=== PATIENT | male | born 1995 | race Caucasian/White ===

== ENCOUNTER → 2016-09-19 | Outpatient (CLI) | payer MEDICAID ==
--- NOTE | 2016-09-19 18:51 | Diagnostic Imaging Report ---
INDICATION: Right fourth finger injury 3 views of the right fourth finger show a volar plate fracture of the base of the middle phalanx of fourth finger. This is minimally displaced. IMPRESSION: Volar plate corner fracture base of the middle phalanx of the right fourth finger. Dictated by: Dictated on workstation # [id number]
== END ==
LOC: RAD 18:08
PROVIDERS: ATTEND Nurse Practitioner Family
DX: S62.624A Displaced fracture of middle phalanx of right ring finger, initial encounter for closed fracture (principal); X58.XXXA Exposure to other specified factors, initial encounter; Y99.8 Other external cause status
CPT/HCPCS: 73140

== ENCOUNTER 2019-06-03 14:09 | Emergency (ER) | payer SELFPAY ==
[~2019-06-03] VITALS: Ht 193 cm; Wt 92.5 kg
[2019-06-03] MEDS ORDERED: ONDANSETRON 4 MG (ZOFRAN) ORAL DISSOLVE TAB PO STA (14:22)
--- NOTE | 2019-06-03 14:25 | ED General ---
General Stated Complaint: SUBSTANCE ABUSE Source of Information: Patient Exam Limitations: No Limitations History of Present Illness Date Seen by Provider: Jun 03, 2019 Time Seen by Provider: 14:20 Initial Comments Patient presents to the ER stating he just injected himself with Meth....... concerned that it was a dirty needle and may have had "WD-40 on it". States he just got out of correction in Feb 2019 where he spent 9 months (off Meth) and only recently started using again. states he is on probation and does not want to go back to correction. States he has anxiety, paranoia and trouble w sleep Denies SI or HI Allergies and Home Medications Allergies Coded Allergies: No Known Drug Allergies (Unverified , 06/03/19) Patient Home Medication List Home Medication List Reviewed: Yes Review of Systems Review of Systems Constitutional: see HPI; No malaise, No weakness Respiratory: No cough, No dyspnea on exertion Cardiovascular: No chest pain, No palpitations Gastrointestinal: No abdominal pain; loss of appetite, nausea; No vomiting Psychiatric/Neurological: See HPI, Anxiety Past Fswrveq-Uyimud-Ayapow Hx Past Med/Social Hx: Reviewed Nursing Past Med/Soc Hx Patient Social History Recreational Drug Use: Yes Physical Exam Vital Signs Vital Signs - First Documented 06/03/19 14:34 Temp 37.3 Pulse 107 Resp 22 B/P (MAP) 151/92 (111) Pulse Ox 98 O2 Delivery Room Air Capillary Refill : Height, Weight, BMI Height: '" Weight: lbs. oz. kg; BMI Method: General Appearance: No Apparent Distress, WD/WN, Anxious HEENT: Normal ENT Inspection Neck: Full Range of Motion, Normal Inspection, Non Tender, Supple Respiratory: Chest Non Tender, Lungs Clear, Normal Breath Sounds Cardiovascular: No Edema, No JVD, Normal Peripheral Pulses, Tachycardia (108) Gastrointestinal: Non Tender, Soft Back: No CVA Tenderness, No Vertebral Tenderness Extremity: Normal Capillary Refill, Normal Inspection Neurologic/Psychiatric: Alert, No Motor/Sensory Deficits Progress/Results/Core Measures Suspected Sepsis SIRS Temperature: Pulse: Respiratory Rate: Blood Pressure / Mean: Results/Orders Lab Results Laboratory Tests Test 06/03/19 14:22 Range/Units Urine Opiates Screen NEGATIVE NEGATIVE Urine Oxycodone Screen NEGATIVE NEGATIVE Urine Methadone Screen NEGATIVE NEGATIVE Urine Propoxyphene Screen NEGATIVE NEGATIVE Urine Barbiturates Screen NEGATIVE NEGATIVE Ur Tricyclic Antidepressants Screen NEGATIVE NEGATIVE Urine Phencyclidine Screen NEGATIVE NEGATIVE Urine Amphetamines Screen POSITIVE H NEGATIVE Urine Methamphetamines Screen POSITIVE H NEGATIVE Urine Benzodiazepines Screen NEGATIVE NEGATIVE Urine Cocaine Screen NEGATIVE NEGATIVE Urine Cannabinoids Screen POSITIVE H NEGATIVE My Orders Orders - JIN ADAME DO Ondansetron Oral Dissolve Tab (Zofran (06/03/19 14:22) Drug Screen Stat (Urine) (06/03/19 14:22) Vital Signs/I&O 06/03/19 06/03/19 14:34 15:15 Temp 37.3 36.8 Pulse 107 128 Resp 22 16 B/P (MAP) 151/92 (111) 148/73 Pulse Ox 98 98 O2 Delivery Room Air Room Air Capillary Refill : Progress Note : Progress Note Uneventful ER stay. Patient presented similarly out of guilt for using with no obvious or perceived threat to himself or others. Denies suicidal or homicidal ideation. Patient was given information and attempt to make an appointment (per nursing) for follow-up drug rehabilitation were discussed and information given to patient at discharge. Departure Impression Primary Impression: Methamphetamine abuse, episodic Disposition: 01 HOME, SELF-CARE Condition: Stable Departure-Patient Inst. Referrals: NO,LOCAL PHYSICIAN (PCP/Family) Primary Care Physician Patient Instructions: Drug Abuse and Drug Addiction (DC), Drug Abuse Treatment JIN ADAEM DO Jun 03, 2019 14:25 POS
[2019-06-03 14:40] LABS: AMPHETAMINE SCREEN, URINE POSITIVE (NEGATIVE); BARBITURATE SCREEN URINE NEGATIVE (NEGATIVE); BENZODIAZEPINES SCREEN URINE NEGATIVE (NEGATIVE); CANNABINOID SCREEN, URINE POSITIVE (NEGATIVE); COCAINE SCREEN URINE NEGATIVE (NEGATIVE); METHADONE STAT NEGATIVE (NEGATIVE); METHAMPHETAMINE SCREEN URINE S POSITIVE (NEGATIVE); OPIATE SCREEN URINE NEGATIVE (NEGATIVE); OXYCODONE STAT NEGATIVE (NEGATIVE); PROPOXYPHENE STAT NEGATIVE (NEGATIVE); TRICYCLIC ANTIDEPRESSANTS SCRE NEGATIVE (NEGATIVE)
[2019-06-03 15:15] VITALS: BP 148/73
== END 2019-06-03 15:15 | disposition home or self-care (01) ==
LOC: EDUNIT# 14:09 → ER FS 14:11
DX: F15.10 Other stimulant abuse, uncomplicated (principal)
CPT/HCPCS: 80306; 99283

== ENCOUNTER 2021-04-18 19:49 | Emergency (ER) | payer OTHER ==
[~2021-04-18] VITALS: Ht 193 cm; Wt 79.0 kg
--- NOTE | 2021-04-18 20:05 | ED Psychosocial ---
General Chief Complaint: Psych/Social Disorder Stated Complaint: CHEMICALS IN MOUTH Source: patient, police Exam Limitations: no limitations History of Present Illness Date Seen by Provider: Apr 18, 2021 Time Seen by Provider: 19:53 Initial Comments 25-year-old male with past medical history of meth amphetamine use disorder coming in with the police after the patient was at his mother's house swishing bleach in his mouth, covering his skin and Sevin Dust (insect killer) and potentially spraying wasp killer on his skin. He used meth just over a day ago and he is concerned that he was around somebody that had Covid so was doing all of this to potentially "kill the COVID". He denies any pain anywhere, shortness of breath, cough, difficulty swallowing, chest pain, abdominal pain, nausea, vomiting, diarrhea, fever, chills, weakness, numbness, seizures, or any other concerns. This occurred over 2 hours ago now. He was decontaminated at the snf prior to coming to the emergency department. Allergies and Home Medications Allergies Coded Allergies: No Known Drug Allergies (Unverified , 06/03/19) Patient Home Medication List Home Medication List Reviewed: Yes Review of Systems Constitutional: No chills, No fever EENTM: No blurred vision, No mouth pain Respiratory: No cough, No short of breath Cardiovascular: No chest pain Gastrointestinal: No abdominal pain, No constipation, No diarrhea, No nausea, No vomiting Musculoskeletal: no symptoms reported Skin: no symptoms reported Psychiatric/Neurological: Anxiety All Other Systems Reviewed Negative Unless Noted: Yes Past Kxdequp-Pwsttc-Ixjzkj Hx Patient Social History Tobacco Use?: Yes Substance use?: Yes Substance type: Methamphetamine Seasonal Allergies Seasonal Allergies: No Past Medical History Surgeries: No Respiratory: No Cardiac: No Neurological: No Genitourinary: No Gastrointestinal: No Musculoskeletal: No Endocrine: No HEENT: No Cancer: No Psychosocial: No Integumentary: No Physical Exam Vital Signs - First Documented 04/18/21 19:50 Temp 36.4 Pulse 89 Resp 15 B/P (MAP) 149/92 (111) Pulse Ox 99 O2 Delivery Room Air Capillary Refill : Height, Weight, BMI Height: '" Weight: lbs. oz. kg; 24.00 BMI Method: General Appearance: WD/WN, no apparent distress HEENT: PERRL/EOMI, normal ENT inspection, TMs normal, pharynx normal Neck: non-tender, full range of motion, supple, normal inspection Respiratory: chest non-tender, lungs clear, normal breath sounds, no respiratory distress, no accessory muscle use Cardiovascular: regular rate, rhythm, no edema, no murmur Gastrointestinal: normal bowel sounds, non tender, soft; No distended, No guarding, No rebound Extremities: normal range of motion, non-tender, normal inspection, no pedal edema, no calf tenderness Neurologic/Psychiatric: no motor/sensory deficits, alert, normal mood/affect, oriented x 3 Appearance/Memory: disheveled Behavior/Eye Contact: increased rate of speech, compulsive Thoughts/Hallucinations: flight of ideas Skin: normal color, warm/dry Lymphatic: no adenopathy Progress/Results/Core Measures Results/Orders My Orders Orders - LAURA REYNOSO MD Chest 1 View Ap/Pa Only (04/18/21 20:01) Vital Signs/I&O 04/18/21 19:50 Temp 36.4 Pulse 89 Resp 15 B/P (MAP) 149/92 (111) Pulse Ox 99 O2 Delivery Room Air Progress Progress Note : Progress Note 25-year-old male with above history coming in with the police after pouring a few different chemicals on the skin as well as swishing and spitting out bleach. ABCs were intact and vitals were stable on presentation. This was confirmed possible bleach and he did not swallow any of it. He has been effectively decontaminated at this point. He is tolerating secretions and water in the emergency department. I contacted poison control and they have no further recommendations at this time, and only recommend decontamination. None of these things should cause serious harm and mostly may have some mild skin irritation. From their standpoint he does not need to be monitored in the emergency department and he is okay for discharge. I did get a chest x-ray for screening and there is no signs of pneumonitis or free air. I believe the patient is stable for discharge. He will be going to the snf with the police officers and will stay there until he is at least clinically sober. He was then discharged to them with strict return precautions and stable condition. Diagnostic Imaging Diagonstic Imaging: Xray Plain Films/CT/US/NM/MRI: chest Comments X-ray chest ordered and interpreted by me showing no obvious opacities, pneumothorax, pleural effusion, and no signs of pneumonitis. No free air under the diaphragm. [facility] [place], [place] NAME: EDELMIRA BRITTON [facility] REC#: [id number] PT STATUS: REG ER : 1995 PHYSICIAN: LAURA REYNOSO MD ADMIT DATE: 04/18/21/ER FS Draft Date of Exam:04/18/21 CHEST 1 VIEW AP/PA ONLY EXAMINATION: Chest 1 view HISTORY: Possible bleach ingestion COMPARISON: None available. FINDINGS: The lungs are clear without edema or pneumonia. No pleural effusion or pneumothorax. Heart size is normal. IMPRESSION: 1. Clear lungs. Dictated on workstation # [id number] Dict: 04/18/[id number] Trans: 04/18/212021 [facility] [id number] Interpreted by: LUCERO BUCHANAN MD Electronically signed by: Departure Impression Primary Impression: Methamphetamine use Additional Impressions: Ingestion of bleach Qualified Codes: T54.91XA - Toxic effect of unspecified corrosive substance, accidental (unintentional), initial encounter Skin irritation due to topical agent Disposition: HOME, SELF-CARE Condition: Stable Departure-Patient Inst. Decision time for Depature: 20:30 Referrals: NO,LOCAL PHYSICIAN (PCP/Family) Primary Care Physician Patient Instructions: Chemical Ingestion (DC) Add. Discharge Instructions: All of the things you put on your skin can cause some mild irritation, we just r ecommend continuing to use mild soap and water for the next couple days. If your skin becomes itchy you can use Benadryl either topically or taken orally. There should not be really any issues from the bleach as it was a very low concentration and you did not swallow it. This may have some mild soreness in your mouth but no significant symptoms. LAURA REYNOSO MD Apr 18, 2021 20:05
--- NOTE | 2021-04-18 20:23 | Diagnostic Imaging Report ---
EXAMINATION: Chest 1 view HISTORY: Possible bleach ingestion COMPARISON: None available. FINDINGS: The lungs are clear without edema or pneumonia. No pleural effusion or pneumothorax. Heart size is normal. IMPRESSION: 1. Clear lungs. Dictated by: Dictated on workstation # [id number]
[2021-04-18 20:36] VITALS: BP 149/92
== END 2021-04-18 20:35 | disposition home or self-care (01) ==
LOC: EDUNIT# 19:49 → ER FS 19:50
DX: F15.90 Other stimulant use, unspecified, uncomplicated (principal); T54.91XA Toxic effect of unspecified corrosive substance, accidental (unintentional), initial encounter; T49.95XA Adverse effect of unspecified topical agent, initial encounter; Z72.0 Tobacco use
CPT/HCPCS: 71045

== ENCOUNTER 2022-06-06 21:06 | Emergency (ER) | payer OTHER ==
[~2022-06-06] VITALS: Ht 193 cm; Wt 88.5 kg
--- NOTE | 2022-06-06 21:20 | ED Upper Extremity ---
General Chief Complaint: Laceration Stated Complaint: LACS ON HANDS Source: patient History of Present Illness Date Seen by Provider: Jun 06, 2022 Time Seen by Provider: 21:13 Initial Comments 26-year-old male arrives in police custody from the correction. He reportedly "mule kicked" an electrical panel cover that was protecting some security equipment. He then reached inside and cut his right hand on the metal. He denies any other injury. He does not know when his last tetanus shot was. Allergies and Home Medications Allergies Coded Allergies: No Known Drug Allergies (Unverified , 06/03/19) Patient Home Medication List Home Medication List Reviewed: Yes Review of Systems Constitutional: no symptoms reported EENTM: no symptoms reported Respiratory: no symptoms reported Cardiovascular: no symptoms reported Gastrointestinal: no symptoms reported Genitourinary: no symptoms reported Musculoskeletal: no symptoms reported Skin: other (Hand abrasions) Psychiatric/Neurological: No Symptoms Reported Past Zzhpumu-Aguykf-Wiyhiv Hx Patient Social History Tobacco Use?: Yes Use of E-Cig and/or Vaping dev: No Substance use?: No Alcohol Use?: No Immunizations Up To Date First/Initial COVID19 Vaccinat: denies Seasonal Allergies Seasonal Allergies: No Past Medical History Surgeries: No Respiratory: No Cardiac: No Neurological: No Genitourinary: No Gastrointestinal: No Musculoskeletal: No Endocrine: No HEENT: No Cancer: No Psychosocial: No Integumentary: No Family Medical History Reviewed Nursing Family Hx No Pertinent Family Hx Physical Exam Vital Signs Capillary Refill : Height, Weight, BMI Height: '" Weight: lbs. oz. kg; 21.00 BMI Method: General Appearance: WD/WN, no apparent distress Cardiovascular: regular rate, rhythm, no murmur Respiratory: chest non-tender, lungs clear, normal breath sounds Hand: abrasions (Several small superficial abrasions to the flexor surface of the right second third and fourth finger. These are very superficial and subcentimeter. No tendinous involvement. Neurovascular motor and sensory intact.) Neurologic/Tendon: normal sensation, normal motor functions, normal tendon functions, no evidence tendon injury Neurologic/Psychiatric: alert, normal mood/affect, oriented x 3 Skin: normal color, other (As described above) Progress/Results/Core Measures Results/Orders My Orders Orders - JENNIFER,ASCENCION L DO Dipht,Pertuss(Acell),Tet Adult (Boostrix (06/06/22 21:30) Departure Communication (Admissions) Patient is hemodynamically stable. Superficial abrasions, local wound care only. Tetanus updated. Discharged in stable condition. Impression Primary Impression: Abrasion of hand without infection Disposition: HOME, SELF-CARE Condition: Stable Departure-Patient Inst. Referrals: NO,LOCAL PHYSICIAN (PCP/Family) Primary Care Physician Add. Discharge Instructions: These are superficial wounds that do not require any further treatment. Allow him to wash his hands a couple times a day and keep them clean. His tetanus was updated today. Return to the emergency department for any severe concerns, redness that spreading or drainage that looks like pus. All discharge instructions reviewed with patient and/or family. Voiced understanding. ASCENCION RODRIGUEZ DO Jun 06, 2022 21:20
[2022-06-06 21:28] VITALS: BP 129/94
[2022-06-06] MEDS ORDERED: TETANUS,DIPTH,PERTUSS P/F (BOOSTRIX) 0.5 ML VIAL IM ONE (21:30)
[2022-06-06] MEDS ORDERED: QUET100T PO (21:56)
== END 2022-06-06 21:28 | disposition home or self-care (01) ==
LOC: EDUNIT# 21:06 → ER FS 21:08
DX: S60.511A Abrasion of right hand, initial encounter (principal); Z23 Encounter for immunization; W26.8XXA Contact with other sharp object(s), not elsewhere classified, initial encounter; Y92.149 Unspecified place in prison as the place of occurrence of the external cause
CPT/HCPCS: 90715; 99284